=== PATIENT | female | born 1935 | race Caucasian/White ===

== ENCOUNTER 2020-07-21 13:11 | Emergency (ER) | payer MEDICARE, SELFPAY ==
--- NOTE | ~2020-07-21 | XR_ITS ---
EXAMINATION: XR hip LT 2V w AP pelvis DATE: 07/21/2020 13:55 INDICATION: Left hip pain and inability to bear weight post fall TECHNIQUE: Anteroposterior view of the pelvis and anteroposterior and frog-leg lateral views of the a ffected hip were obtained. COMPARISON: None. FINDINGS: Moderate lumbar spondylosis with mild lumbar levocurvature centered at L4-L5 where there is moderate to severe right-sided predominant disc height loss. Alignment is otherwise normal. No fracture. Bilat eral hip and sacroiliac joint spaces are relatively preserved. Multiple phleboliths in the pelvis. So ft tissues are otherwise unremarkable. IMPRESSION: 1. No acute osseous abnormality evident at the left hip or pelvis. 2. Moderate lumbar spondylosis. Reviewed, dictated and finalized at location A. CTIC INSTRUCTOR
[2020-07-21 13:18] VITALS: TEMP 36.7
--- NOTE | 2020-07-21 14:49 | ED.GENADULT ---
HPI - General Adult General Chief complaint: Extremity Injury, Lower <Sriram Holly PA-C - Last Filed: 07/21/20 15:32> Stated complaint: left hip pain, fall 07/10 <Sriram Holly PA-C - Last Filed: 07/21/20 15:32> Time Seen by Provider: 07/21/20 13:31 <Sriram Holly PA-C - Last Filed: 07/21/20 15:32> Source: patient <KAMINI Suggs Last Filed: 07/21/20 15:32> Mode of arrival: ambulatory <KAMINI Suggs Last Filed: 07/21/20 15:32> Limitations: no limitations <Sriram Holly PA-C - Last Filed: 07/21/20 15:32> History of Present Illness HPI narrative: Patient presents with chief complaint of pain to her left groin that began after falling on 07-10-20. Patient states that she has been having adjustments by her chiropractor but it has not resolved her symptoms. Patient states that she is able to ambulate on the extremity using a walker. Patient denies head impact, loss of consciousness or any other injuries. Patient denies saddle paresthesias, loss of bowel or bladder function, back pain or any other areas of injury. <Sriram Holly PA-C - Last Filed: 07/21/20 15:32> Related Data Allergies/adverse reactions: Allergies Allergy/AdvReac Type Severity Reaction Status Date / Time No Known Allergies Allergy Unverified 04/04/14 15:17 <Sriram Holly PA-C - Last Filed: 07/21/20 15:32> Review of Systems Review of Systems: Narrative: CONSTITUTIONAL: Denies fever, chills, or sweats. EYES: Denies visual changes, redness, or discharge. ENT: Denies rhinorrhea, congestion, sore throat, or otalgia. CARDIOVASCULAR: Denies chest pain, palpitations, or edema. RESPIRATORY: Denies cough or dyspnea. GASTROINTESTINAL: Denies abdominal pain, nausea, vomiting, or diarrhea. GENITOURINARY: Denies dysuria or hematuria. SKIN: Denies rash or itching. MUSCULOSKELETAL: Reports left groin pain denies back pain, joint pain, or myalgia. NEUROLOGIC: Denies headache, numbness, dizziness, or weakness. PSYCHIATRIC: Denies anxiety or depression. <Sriram Holly PA-C - Last Filed: 07/21/20 15:32> [facility] Family History Family History: Family History (Updated 03/02/14 @ 10:47 by DOCTOR UNKNOWN) Other Diabetes mellitus Family history of arthritis <Sriram Holly PA-C - Last Filed: 07/21/20 15:32> Social History Social History: Social History Smoking status: Never smoker <Sriram Holly PA-C - Last Filed: 07/21/20 15:32> Exam Narrative: Exam Narrative: GENERAL: Well-appearing, well-nourished, and in no acute distress. HEAD: Normocephalic, atraumatic. EYES: PERRLA and EOMI. NECK: Supple. No adenopathy or masses. CHEST: Clear to auscultation. No respiratory distress. No wheezes rales or rhonchi HEART: Regular rate and rhythm. EXTREMITIES: No pelvic tenderness with palpation. Pelvis is stable. Patient is able to ambulate the and weight-bear. Patient reports pain initially triggering abduction in neutral position but does not have pain when resting in these positions. Normal range of motion. No edema. SKIN: Warm, dry, no rash. NEURO: No focal deficits. Alert and oriented x3. PSYCH: Normal mood and affect. <Sriram Holly PA-C - Last Filed: 07/21/20 15:32> Course Vital Signs Vital signs: Vital Signs Temperature 98.1 F 07/21/20 13:18 Temperature 98.1 F 07/21/20 13:18 <Sriram Holly PA-C - Last Filed: 07/21/20 15:32> Vital Signs Temperature 98.1 F 07/21/20 13:18 Temperature 98.1 F 07/21/20 13:18 <Odette Westbrook MD - Last Filed: 07/21/20 17:50> Medical Decision Making MDM Narrative Medical decision making narrative: Patient states she does have some balance issues and issues with also she is not a good candidate for muscle relaxers to help with the groin spasming as it increases her fall risk. Patient's family asked if she can be prescribed strong medication such as Vicodin to which I declined
== END 2020-07-21 15:06 | disposition home or self-care (01) ==
PROVIDERS: Emergency Provider General Practice; PCP Internal Medicine
DX: S39.011A Strain of muscle, fascia and tendon of abdomen, initial encounter (principal); M47.816 Spondylosis without myelopathy or radiculopathy, lumbar region; W19.XXXA Unspecified fall, initial encounter
CPT/HCPCS: 73502; 99283

== ENCOUNTER 2022-07-11 08:01 | Outpatient (CLI) | payer MEDICARE, SELFPAY ==
--- NOTE | ~2022-07-11 | CT_ITS ---
EXAMINATION: CT LE LT wo con DATE: 07/11/2022 08:27 INDICATION: Left knee osteoarthritis for preoperative planning TECHNIQUE: High resolution computed tomography (CT) of the left lower extremity from the hip through the ankle was performed without intravenous contrast. Additional sagittal and coronal reconstructions were performed. Automated exposure control and iterative reconstruction technique were employed. The dose-length product was 1669.25 mGy-cm. COMPARISON: Left knee radiographs dated 07/03/2022 FINDINGS: Old healed fracture deformity at the left pubic body. Medial unicompartmental arthroplasty at the par tially visualized right knee. No acute fractures. Tricompartmental osteoarthritis at the left knee wi th severe joint space narrowing evident on the prior weightbearing radiographs and remodeling of the articular cortex at the anterior to central medial tibial plateau. There is eburnation and subarticul ar cystlike changes along the medial tibial plateau and weightbearing medial femoral condyle. Mild hitesh int space. Moderate size marginal osteophytes in the the lateral and patellofemoral compartments. The re is heterotopic ossification at the deltoid ligament at the medial left ankle consistent with seque la of chronic sprain. Moderate-sized left knee joint effusion. Screw at the head of the left second m etatarsal. IMPRESSION: 1. 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 2. Old healed fracture deformity at the left pubic body. No acute osseous abnormality. Reviewed, dictated and finalized at location A. MANAGER IMPRESSION: 1. 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 2. Old healed fracture deformity at the left pubic body. No acute osseous abnor mality.
[2022-07-11 09:58] LABS: Hematocrit 43.5 % (37.0-47.0)
[2022-07-11 11:21] LABS: Urine Cotinine NEGATIVE
[2022-07-11 18:07] LABS: Albumin Level 4.4 g/dL (3.5-5.1); Estimated Glomerular Filt Rate > 60; Glucose 97 mg/dL (65-110)
== END 2022-07-11 08:02 | disposition home or self-care (01) ==
PROVIDERS: PCP Internal Medicine; Visit Provider Orthopaedic Surgery
DX: M17.12 Unilateral primary osteoarthritis, left knee (principal); Z01.818 Encounter for other preprocedural examination
CPT/HCPCS: 73700; 80307; 82040; 82565; 82947; 83036; 85014; 85018

== ENCOUNTER 2022-09-17 09:52 | Outpatient (CLI) | payer MEDICARE, SELFPAY ==
--- NOTE | 2022-09-17 10:55 | ECG_ITS ---
Measurements Intervals [place] Rate: 75 P: 15 WV: 153 QRS: -26 QRSD: 92 T: 35 QT: 347 QTc: 389 Interpretive Statements SINUS RHYTHM LEFT VENTRICULAR HYPERTROPHY WITH ST-T CHANGE CANNOT RULE OUT SEPTAL INFARCT, AGE INDETERMINATE BASELINE ARTIFACT- I, II, III, AVR, AVL, AVF, V1-V6 ABNORMAL ECG NO PREVIOUS ECG AVAILABLE FOR COMPARISON Electronically Signed On 09-17-2022 12:33:49 CDT by Marcos Rodríguez D.O.
[2022-09-17 11:20] LABS: Basophils Percent Auto 0.4 % (0.2-1.2); Eosinophils Absolute Auto 0.2 K/mm3 (0-0.3); Eosinophils Percent Auto 1.8 % (0-4.4); Hematocrit 43.5 % (37.0-47.0); Hemoglobin 14.1 g/dL (12.0-15.0); Immature Granulocyte Absolute 0.04 K/mm3 (0.00-0.031); Immature Granulocyte Percent A 0.4 % (0-0.5); Lymphocytes Absolute Auto 2.11 K/mm3 (0.9-3.2); Lymphocytes Percent Auto 22.8 % (18.3-44.2); Mean Corpuscular HGB Conc 32.4 g/dl (32-36); Mean Corpuscular Hemoglobin 30.6 pg (26-34); Mean Corpuscular Volume 94.4 fl (80-100); Monocytes Absolute Auto 0.7 K/mm3 (0.1-0.6); Neutrophils Absolute Auto 6.3 K/mm3 (1.3-6.7); Neutrophils Percent Auto 67.6 % (45.5-73.1); Platelet Count Result 281 k/mm3 (150-375); Red Blood Count 4.61 M/mm3 (4.2-5.4); Red Cell Distribution Width 13.9 % (11.5-14.5); White Blood Count 9.3 K/mm3 (4.5-10.0)
[2022-09-17 11:24] LABS: Albumin Level 4.5 g/dL (3.5-5.1); Estimated Glomerular Filt Rate > 60; Glucose 101 mg/dL (65-110)
[2022-09-17 11:27] LABS: Urine Cotinine NEGATIVE
== END 2022-09-17 09:53 | disposition home or self-care (01) ==
LOC: ANHSURGERY 09:56
PROVIDERS: PCP Internal Medicine; Visit Provider Orthopaedic Surgery
DX: M17.12 Unilateral primary osteoarthritis, left knee (principal); Z01.818 Encounter for other preprocedural examination
CPT/HCPCS: 80307; 82040; 82565; 82947; 85025; 87081; 93005

== ENCOUNTER 2022-10-07 00:25 | Day surgery (SDC) | payer MEDICARE, SELFPAY ==
[2022-09-17 10:19] VITALS: BP 162/75; PULSE 76; RESP 16; TEMP 37.2; O2SAT 97; BMI 25.0
--- NOTE | 2022-09-17 10:30 | PC.NURSE ---
Report to the Outpatient Waiting Room, entrance under the green pavilion located off [facility], at time ___8:30AM____ on date __10/07/22 . Planned Procedure Time: __10:30AM . Time changes happen often and if your time is changed the preop area will call you the afternoon before. - You and your visitor will be asked to self-screen and do not enter if you have any COVID symptoms. - Only one visitor is requested with a max of two and NO children visitors are allowed at this time. - The patient visitor may be requested to leave or wait in car when not with patient due to distancing restrictions. - A mask is optional within the hospital at this time. Patients may have clear liquids (water, carbonated beverages, clear teas, apple juice) until 3 hours prior to surgery with a maximum of 20 ounces. - No food from midnight until time of surgery Take the following medications with a SIP of water the morning of surgery: NONE DO NOT STOP ANY OF YOUR OTHER PRESCRIPTION MEDICATIONS PRIOR TO SURGERY ?EXCEPT THE FOLLOWING Medications to discontinue per physician ____ALL VITAMINS/SUPPLEMENTS 7 DAYS PRE-OP PER DR DICKERSON (PER PATIENT) Date to take last dose____09/30/22 Please no make-up, nail kyrgyz, hairspray, perfume, deodorant, or body powder the day of surgery. No jewelry (including any body piercings) or valuables the day of surgery, leave them at home. Please take a shower or bath the night before, or the morning of, surgery with an antibacterial soap. Wear comfortable, loose fitting clothing. Children are encouraged to wear pajamas. - Jewelry must be removed prior to entering the operating room. Rings and piercings that are not removed may be cut off. - The hospital will not accept responsibility for valuables. - Please leave all valuables, including medications, at home the day of surgery. If you are going home after surgery, a licensed transportation driver must drive you home. - NO public transportation without another adult if you receive anesthesia. - We recommend that an adult stay with you for 24 hours following discharge. - We also recommend that you do not drive, make important decision, drink alcoholic beverages, or take any drugs that were not prescribed by your health care provider for at least 24 hours after your discharge time. Follow any additional instructions given to you from your surgeon. If you or anyone in your household have experienced Covid symptoms in the past week, please notify your surgeon or the nurse liaison at the phone number below for possible testing. Telephone instructions given to ___PATIENT & SON and asked if any additional questions and then verbalized understanding. Patient advised to call surgeon office or pre surgery nurse liaison [phone] if any additional questions.
--- NOTE | 2022-10-06 13:28 | WPDANESEPPF ---
Anes - Initial Pre Proc Eval Procedure: Operation Date: 10/07/22 07:30 Proposed Procedures p Left Custom Total Knee Arthroplasty - Jonathan Alcala MD Date/Time: 10/06/22 13:28 Surgeon: Jonathan Alcala MD Pre Op Diagnosis: primary oa left knee Patient Data Age: 86 Gender: F Height: 1.5 m Weight: 56.2 kg Last Vital Signs Temp 37.2 C 09/17/22 10:19 Pulse 76 09/17/22 10:19 Resp 16 09/17/22 10:19 BP 162/75 H 09/17/22 10:19 Pulse Ox 97 09/17/22 10:19 O2 Del Method Room Air 09/17/22 10:19 Allergies Allergy/AdvReac Type Severity Reaction Status Date / Time No Known Allergies Allergy Verified 10/07/22 07:09 Home Medications Medication Instructions Recorded Confirmed Type Lactobacills gasseri-Bifidobac 1 cap PO DAILY 09/17/22 10/07/22 History bifidum,longum 1.5 billion cell capsule ([employer]) acetaminophen 325 mg tablet 325 mg PO Q8-10H PRN Pain 09/17/22 09/17/22 History (Tylenol) ascorbic acid 100 mg-elderberry 1 tablet PO DAILY 09/17/22 10/07/22 History fruit 50 mg chewable tablet biotin 10,000 mcg capsule 10,000 mcg PO DAILY 09/17/22 10/07/22 History calcium 600 mg capsule 600 mg PO DAILY 09/17/22 10/07/22 History coenzyme Q10 100 mg capsule 100 mg PO DAILY 09/17/22 10/07/22 History (CoQ-10) glucosamine sulfate 500 mg tablet 500 mg PO DAILY 09/17/22 10/07/22 History (Glucosamine) illielecdvme-whigkruz-SS-omega 1 cap PO DAILY 09/17/22 10/07/22 History 3,6,9 #3 400 mcg capsule vit C 250 mg-vit E 90 mg-zinc 40 1 tablet PO BID 09/17/22 10/07/22 History mg-copper 1 ts-stojix-wnssvk capsule (PreserVision AREDS-2) zinc 50 mg capsule 50 mg PO DAILY 09/17/22 10/07/22 History Patient hx anesthesia problems: none Family hx anesthesia problems: none Results Review: All pre-operative results and documents have been reviewed as part of the pre-operative evaluation. [facility] Past Medical History Medical History History of bruising easily Surgical History Surgical History History of dental surgery History of foot surgery (~07/2011) History of right knee surgery (~05/2013) Partial knee replacement by [facility] History of shoulder surgery (~03/2014) Right Anatomic TSA by [facility] Family History Family History Other Diabetes mellitus Family history of arthritis Social History Social History Smoking status: Never smoker Alcohol intake: never Substance use: never Substance use type: does not use Lack of Transportation: No Lack of Food: Never True Current Housing: I Have Housing Concerned About Future Housing: No Difficulty Paying Gas/Electric Bills: No Difficulty Paying for Meds: No Currently Unemployed: No Education: High School Diploma/GED Difficulty w/ Childcare or Family Care: No Living arrangements: alone Spiritual care concerns: No Anes - Eval Final PreProcedure Day of Procedure 10/06/22 13:28 Patient weight: normal Heart: regular rate and rhythm Lungs: clear to auscultation and normal air movement Airway: Mallampati scale class II Neurological: alert and oriented Last oral intake: >/= 8 hours ASA classification: II Emergent: no Anesthetic plan: proceed Anesthesia type and monitoring: general LMA and standard monitoring Results Review: All pre-operative results and documents have been reviewed as part of the pre-operative evaluation. Informed Consent: The patient's anesthetic plan and its attendant risks and benefits were discussed with the patient/family/POA. Questions were solicited and answers provided to the satisfaction of the patient/family/POA.
[2022-10-07] VITALS (13 sets, daily range): BP systolic 113–174; BP diastolic 50–101; PULSE 72–104; RESP 12–20; TEMP 36.1–36.7; O2SAT 95–100
--- NOTE | ~2022-10-07 | XR_ITS ---
Left Knee Technique: Portable AP and crosstable lateral views Clinical History: Status post TKR Findings: Patient is status post total knee replacement. Orthopedic hardware alignment appears anatom ic. No hardware complication is evident. Subcutaneous emphysema and swelling is likely postoperative in nature. No acute osseous fracture is seen. Impression: Status post total knee replacement, without evidence of hardware complication. Reviewed, dictated and finalized at location . Impression: Status post total knee replacement, without evidence of hardware complication.
[2022-10-07] MEDS: ACETAMINOPHEN 500 MG TABLET 1000 MG PO ×3 (07:18→19:00)
[2022-10-07] MEDS: LACTATED RINGERS 1,000 ML 30 ML IV CONT ×2 (07:20→10:41)
[2022-10-07] MEDS: TRANEXAMIC ACID 1,000MG/ISO100 1,000 MG/100 ML BAG 200 MG IVPB (07:20)
--- NOTE | 2022-10-07 07:24 | WPDHPUPDATE1 ---
History and Physical Update Update Date/Time: 10/07/22 07:24 History and Physical has been reviewed, including an updated exam of the patient. There are NO changes in the patient's condition. Risks, benefits, and alternatives have been discussed and questions answered. Patient agrees to proceed with procedure.
--- NOTE | 2022-10-07 07:54 | WPDANESPNB ---
Anes - Peripheral Nerve Block Date/Time: 10/07/22 07:54 I have discussed with the patient/family/POA the placement of a peripheral nerve block for post-operative pain management, including associated risks, benefits, complications, and side effects. Alternative methods of post-operative analgesia were detailed. Questions were solicited and answers provided to the satisfaction of the patient/family/POA. Time-Out: A pre-procedural Time-Out was completed immediately before starting the procedure and confirmed: Patient Identification, Site, Procedure, Patient Position and the Availability of Requisite Equipment. Clinical Indications: Acute post-operative pain management requested by the operative surgeon. Nerve Block Insertion Note Anes-nerve block: adductor canal left Patient position: supine Skin prep: chlorhexidine Needle: 22 gauge, stimulating, insulated echogenic needle. Needle length: 80 mm Technique: ultrasound Injectate: bupivacaine 0.5% with epi 5 mcg/ml (30cc - no epi) Observations: tolerated well Complications: none Procedure start time:: 748 Procedure end time:: 752
[2022-10-07] MEDS: ceFAZolin 2 GM/D5W 50 ML 2 GM/50 ML BAG IVPB ×2 (07:57→16:24)
[2022-10-07] MEDS: GENTAMICIN BONE CEMENT REFOBACIN 1 EACH TOPICAL (08:48)
--- NOTE | 2022-10-07 11:51 | ADMGEN ---
This patient, Marlen Casillas, was admitted to Medical Room 246-01. Patient/family oriented to hospital policies and general routines including ID bracelet, bed and alarms, visiting hours, pain management, procedures, bathroom and other care routines, personal items, smoking policy, room service/diet, and visiting hours. Information on how to activate the Rapid Response Team has been discussed. Patient/Family are encouraged to report perceived risks to care and to ask questions if they do not understand what they are told or what they should do.
[2022-10-07] MEDS: ASPIRIN 81 MG ENTERIC TABLET PO ×2 (14:28→19:00)
[2022-10-07] MEDS: MELOXICAM 7.5 MG TABLET PO ×2 (14:28→21:07)
[2022-10-07] MEDS: FAMOTIDINE 20 MG TABLET PO ×2 (14:28→21:07)
--- NOTE | 2022-10-07 14:57 | P.OP_ITS ---
Procedure Note - Detailed Date of Procedure 10/07/22 Pre-op Diagnosis Left knee degenerative arthritis. Post-op Diagnosis Same Procedure Performed Total knee arthroplasty, left Surgeon Jonathan Alcala MD [employer] Coverage Merchandiser Lead Aimee Trevizo PA-C Anesthesia General and Regional (Subsartorial block.) Findings Good bone quality. Moderate medial release. Slight PCL release. Description of Procedure Preoperative antibiotics were given. The limb was prepped and draped in the usual sterile fashion with a well-padded tourniquet high on the thigh. The limb was exsanguinated and the tourniquet inflated to 300 mmHg. A longitudinal incision was created just medial to the patella. A trivector approach to the knee was performed. Arthrotomy was taken down through the joint capsule. No significant releases were initially taken. The femur was exposed and the F1 jig was applied. The coring tool was used to remove the cartilage for the F2 jig to sit flush with the bone. The jig was pinned and the distal cut carefully taken. Caliper measurements confirmed appropriate bony resections according to the preoperative templated plan. The F4 cutting jig for the femur was applied, at the standard rotation. The AP and anterior chamfer cuts were taken. The F5 jig was applied and the posterior chamfer cuts were taken. The tibia was prepared using the T1 jig, after removing cartilage for the jig contact points. Proper alignment was checked with the alignment hubert. The tibia was cut using the T1u guide. Gap balancing was performed. Gap measurements were taken and the knee was trialed. Excellent alignment and soft tissue balancing was confirmed. The posterior cruciate ligament was recessed along the proximal tibia. The patella was cut for resurfacing. Three lug holes were drilled. Meniscal remnants were removed. The trial components were assembled. Excellent range of motion and proper soft tissue balancing were confirmed throughout the full range of motion. Patellar tracking was excellent. The knee was copiously irrigated periodically throughout the procedure. The real implants were cemented into position. Excess cement was carefully removed. The wound was closed in layers with interrupted #1 Vicryl suture, #2 strata fix suture, 2-0 strata fix suture, 3-0 strata fix suture. Steri-Strips placed on the skin with the knee flexed. Sterile bulky dressing applied. The patient was brought to the recovery room in stable condition. There were no complications. Implants [employer] total knee arthroplasty. Cemented. Cruciate retaining. 8 mm insert. 35 mm oval patella. Estimated Blood Loss 75 Urine Output 400 Drains No Complications No immediate complications Condition Stable Disposition PACU [facility] Billing Surgery - Charge Forward: Surgery Billing
[2022-10-07] MEDS: SENNA/DOCUSATE SODIUM TABLET 2 TAB PO (21:08)
[2022-10-08] VITALS: PULSE 72; RESP 20; O2SAT 98
[2022-10-08] MEDS: ACETAMINOPHEN 500 MG TABLET 1000 MG PO (00:55)
[2022-10-08] MEDS: ceFAZolin 2 GM/D5W 50 ML 2 GM/50 ML BAG IVPB ×2 (00:55→08:31)
[2022-10-08 01:10] VITALS: BP 144/69; PULSE 64; RESP 18; TEMP 36.3; O2SAT 96
[2022-10-08 05:36] LABS: Anion Gap 3 mmol/L (8-16); Blood Urea Nitrogen 12 mg/dL (7-17); Calcium 9.2 mg/dL (8.4-10.2); Carbon Dioxide 29 mmol/L (22-30); Chloride 107 mmol/L (98-107); Estimated Glomerular Filt Rate > 60; Glucose 82 mg/dL (65-110); Potassium 3.8 mmol/L (3.4-5.0); Sodium 139 mmol/L (137-145)
[2022-10-08 05:43] LABS: Basophils Percent Auto 0.4 % (0.2-1.2); Eosinophils Absolute Auto 0.1 K/mm3 (0-0.3); Eosinophils Percent Auto 1.3 % (0-4.4); Hematocrit 35.2 % (37.0-47.0); Hemoglobin 11.4 g/dL (12.0-15.0); Immature Granulocyte Absolute 0.02 K/mm3 (0.00-0.031); Immature Granulocyte Percent A 0.2 % (0-0.5); Lymphocytes Absolute Auto 2.53 K/mm3 (0.9-3.2); Lymphocytes Percent Auto 25.3 % (18.3-44.2); Mean Corpuscular HGB Conc 32.4 g/dl (32-36); Mean Corpuscular Hemoglobin 30.5 pg (26-34); Mean Corpuscular Volume 94.1 fl (80-100); Mean Platelet Volume 9.6 fl (7.4-10.4); Monocytes Absolute Auto 0.8 K/mm3 (0.1-0.6); Neutrophils Absolute Auto 6.5 K/mm3 (1.3-6.7); Neutrophils Percent Auto 64.8 % (45.5-73.1); Platelet Count Result 221 k/mm3 (150-375); Red Blood Count 3.74 M/mm3 (4.2-5.4); Red Cell Distribution Width 13.9 % (11.5-14.5)
[2022-10-08 05:55] VITALS: BP 135/66; PULSE 62; RESP 20; TEMP 36.5; O2SAT 98
--- NOTE | 2022-10-08 07:49 | PM.DS ---
DS: Admitting Diagnosis Discharge Date 10/08/22 Admitting Diagnosis OA knee Left DS: Discharge Diagnosis Discharge Diagnosis (1) Status post total left knee replacement: Code(s): Z96.652 - Presence of left artificial knee joint Status: Acute Assessment and Plan: Postop day 1: Left total knee arthroplasty. Patient tolerated procedure well. No complications. Pain manageable with pain medication. No numbness or tingling. We had a lengthy discussion regarding postoperative wound care, limitations, expectations, and exercises. Patient shows good understanding. She has had initial physical therapy and is tolerating it well. DVT prophylaxis: 81 mg baby aspirin b.i.d. for 14 days. Pain medication: Percocet. Meloxicam. Prednisone. Patient has followup appointment with Dr. Alcala in 3 weeks. DS: Summary Hospital Course Reason for hospitalization: Total knee arthroplasty Hospital Course: Patient tolerated procedure well. Has had initial PT/OT. Status at Discharge Functional status at discharge: uses cane/walker Overall status at discharge: patient is progressing back to baseline Time Spent with Patient Time attestation: Total time spent providing and/or coordinating discharge services: Exam Narrative: 86-year-old thin female. Resting comfortably in chair. Alert and oriented x3. No acute distress. Wearing compression socks bilaterally. Dressing intact without drainage. Moderate swelling. Mild ecchymosis. No erythema. No hematoma. Range of motion limited due to pain. Calf nontender. Neurologic status intact. No varicosities. Distal pulses palpable. DS: Data Data Completed and Pending Labs on day of discharge: Labs from last 24 hours 10/08/22 10/08/22 10/07/22 04:59 04:59 07:13 WBC 10.0 RBC 3.74 L Hgb 11.4 L Hct 35.2 L MCV 94.1 MCH 30.5 MCHC 32.4 RDW 13.9 Plt Count 221 MPV 9.6 Immature Gran % (Auto) 0.2 Neut % (Auto) 64.8 Lymph % (Auto) 25.3 [place] % (Auto) 8.0 Eos % (Auto) 1.3 Baso % (Auto) 0.4 Lymph # (Auto) 2.53 [place] # (Auto) 0.8 H Eos # (Auto) 0.1 Baso # (Auto) 0.0 Abs Immat Gran (auto) 0.02 Absolute Neuts (auto) 6.5 Absolute Nucleated RBC 0.0 Nucleated RBC % 0.0 Sodium 139 Potassium 3.8 Chloride 107 Carbon Dioxide 29 Anion Gap 3 L BUN 12 Creatinine 0.70 Estim Creat Clear Calc Not Reportable Estimated GFR > 60 Glucose 82 Calcium 9.2 Blood Type AB Positive Antibody Screen Negative Discharge Plan Discharge Patient Disposition: Home, Self-Care Discharge Instructions: See green instruction sheets Patient Instructions: Pain Management (DC), Knee Replacement (DC) Stand Alone Forms: General Discharge Instructions Follow-up/Referrals: Aimee Trevizo PA [Physician Public Relations Sales Marketing] - Discharge Medications: New aspirin 81 mg tablet,delayed release (DR/EC) 81 mg PO BID 14 Days Qty: 28 0RF meloxicam 15 mg tablet 15 mg PO DAILY Qty: 30 0RF Rx Instructions: Cut in half. Take 1/2 in morning and 1/2 at night. Take with food. Stop if stomach upset. prednisone 5 mg tablet 5 mg PO DAILY 21 Days Qty: 21 0RF oxycodone-acetaminophen 5-325 mg tablet 1 - 2 tablet PO Q4-6H MDD 6 PRN (Reason: pain) Qty: 30 0RF Continued calcium 600 mg Capsule 600 mg PO DAILY glucosamine sulfate [Glucosamine] 500 mg Tablet 500 mg PO DAILY Rx Instructions: administer with a meal biotin 10,000 mcg Capsule 10,000 mcg PO DAILY coenzyme Q10 [CoQ-10] 100 mg Capsule 100 mg PO DAILY zinc 50 mg Capsule 50 mg PO DAILY cp-lk-TS-[place] 3,6,9 #3 400 mcg Capsule 1 cap PO DAILY [place] 1.5 billion cell Capsule 1 cap PO DAILY PreserVision AREDS-2 250-90-40-1 mg Capsule 1 tablet PO BID ascorbic acid-elderberry fruit 100-50 mg Tablet,Chewable 1 tablet PO DA
[2022-10-08] MEDS: traMADol HCL (*CRX) 50 MG TABLET PO (08:25)
[2022-10-08] MEDS: FAMOTIDINE 20 MG TABLET PO (08:32)
[2022-10-08] MEDS: predniSONE 5 MG TABLET PO (08:32)
[2022-10-08] MEDS: ASPIRIN 81 MG ENTERIC TABLET PO (08:32)
[2022-10-08] MEDS: MELOXICAM 7.5 MG TABLET PO (08:33)
[2022-10-08 09:23] VITALS: BP 158/79; PULSE 78; RESP 20; O2SAT 95
--- NOTE | 2022-10-08 09:54 | WPDANESPN ---
Anes - Prog Note Post-Op Date/Time: 10/08/22 09:54 Cardiovascular status: normal Respiratory status: normal Airway patency: baseline Mental status: baseline Post-Op hydration status: normal Vital Signs: Last Vital Signs Temp 36.5 C 10/08/22 05:55 Pulse 78 10/08/22 09:23 Resp 20 10/08/22 09:23 BP 158/79 H 10/08/22 09:23 Pulse Ox 95 10/08/22 09:23 O2 Del Method Room Air 10/08/22 00:00 O2 Flow Rate 6 10/07/22 10:56 Pain Score (VAS): 2 I/O: Intake & Output 10/07/22 10/08/22 10/08/22 23:59 07:59 15:59 Intake Total 290 650 600 Output Total 300 1200 Balance -10 -550 600 Laboratory Tests 10/08/22 04:59 10/08/22 04:59 10/08/22 10/08/22 04:59 04:59 WBC 10.0 RBC 3.74 L Hgb 11.4 L Hct 35.2 L MCV 94.1 MCH 30.5 MCHC 32.4 RDW 13.9 Plt Count 221 MPV 9.6 Immature Gran % (Auto) 0.2 Neut % (Auto) 64.8 Lymph % (Auto) 25.3 [place] % (Auto) 8.0 Eos % (Auto) 1.3 Baso % (Auto) 0.4 Lymph # (Auto) 2.53 [place] # (Auto) 0.8 H Eos # (Auto) 0.1 Baso # (Auto) 0.0 Abs Immat Gran (auto) 0.02 Absolute Neuts (auto) 6.5 Absolute Nucleated RBC 0.0 Nucleated RBC % 0.0 Sodium 139 Potassium 3.8 Chloride 107 Carbon Dioxide 29 Anion Gap 3 L BUN 12 Creatinine 0.70 Estim Creat Clear Calc Not Reportable Estimated GFR > 60 Glucose 82 Calcium 9.2 Post-procedural complaints: none Patient Feedback: Patient satisfied with anesthetic care.
== END 2022-10-08 11:25 | disposition home or self-care (01) ==
LOC: ANHSURGERY 08:30 → ANH2MED 11:40
PROVIDERS: Physician Assistant Surgical; PCP Internal Medicine; Visit Provider Orthopaedic Surgery
PROC: (CPT 27447; principal; 2022-10-07 07:30)
DX: M17.12 Unilateral primary osteoarthritis, left knee (principal); G89.18 Other acute postprocedural pain; Z79.899 Other long term (current) drug therapy
CPT/HCPCS: 27447; 64447; 36415; 73560; 80048; 85025; 86850; 86900; 86901; 97110; 97116; 97162; 97165; 97530; 97535; A9270; C1713; C1776; J0171; J0690; J1100; J1885; J2270; J2405; J2704; J2795; J3010; J7120; J7512